=== PATIENT | male | born 1995 | race Caucasian/White ===

== ENCOUNTER 2018-05-07 16:40 | Emergency (ER) | payer OTHER, BC ==
[2018-05-07 16:47] VITALS: TEMP 98.9
[2018-05-07] MEDS ORDERED: Sodium Chloride 0.9% 1,000 ML IV STA (17:40)
[2018-05-07 18:09] LABS: BASO % 0.5 % (0.0-2.0); EOS # 0.1 K/uL (0.0-0.7); EOS % 0.9 % (0.0-4.0); HEMOGLOBIN 14.8 g/dL (12.0-18.0); LYMPH # 2.3 K/uL (1.0-4.3); LYMPH % 26.1 % (20.0-40.0); MEAN CELL VOLUME 90.7 fl (80.0-94.0); MEAN CORPUSCULAR HEMOGLOBIN 31.1 pg (27.0-31.0); MEAN CORPUSCULAR HGB CONC 34.3 g/dL (33.0-37.0); MONO # 0.6 K/uL (0.0-0.8); MONO % 6.7 % (0.0-10.0); NEUT # 5.9 K/uL (1.8-7.0); NEUT % 65.8 % (50.0-75.0); RBC 4.77 Mil/uL (4.40-5.90); RED CELL DISTRIBUTION WIDTH 12.1 % (11.5-14.5); WHITE BLOOD COUNT 8.9 K/uL (4.8-10.8)
[2018-05-07 18:17] LABS: ALB/GLOB RATIO 1.4 (1.0-2.1); ALBUMIN 4.3 g/dL (3.5-5.0); ALT/SGPT 34 U/L (21-72); AST/SGOT 27 U/L (17-59); BLOOD UREA NITROGEN 16 mg/dl (9-20); CALCIUM 9.3 mg/dL (8.4-10.2); GFR AFRICAN-AMERICAN > 60; GFR NON-AFRICAN AMERICAN > 60
--- NOTE | 2018-05-07 18:19 | ED PDOC ---
HPI: General Adult Time Seen by Provider: 05/07/18 16:51 Chief Complaint (Nursing): Weakness/Neurological Deficit Chief Complaint (Provider): Nausea - Resolved History Per: Patient History/Exam Limitations: no limitations Onset/Duration Of Symptoms: Hrs Have you had recent travel within the past 21 days to any of the following countries: [place], [place], [place] or [place]?: No Current Symptoms Are (Timing): Better Additional Complaint(s): 22 yo male with no medical problems presents after feeling nauseous at work earlier today. Pt states he has been out in the heat for duty the last few days. Pt states now that he is out of the heat he is feeling much better. Past Medical History Reviewed: Historical Data, Nursing Documentation, Vital Signs Vital Signs: Last Vital Signs Temp 98.9 F 05/07/18 16:45 Pulse 51 L 05/07/18 16:45 Resp 18 05/07/18 16:45 BP 120/67 05/07/18 16:45 Pulse Ox 99 05/07/18 16:45 - Medical History PMH: No Chronic Diseases - Surgical History Surgical History: No Surg Hx - Family History Family History: States: No Known Family Hx - Living Arrangements Living Arrangements: With Family - Allergies Allergies/Adverse Reactions: Allergies Allergy/AdvReac Type Severity Reaction Status Date / Time No Known Allergies Allergy Verified 05/07/18 16:45 Review of Systems ROS Statement: Except As Marked, All Systems Reviewed And Found Negative Constitutional: Negative for: Fever, Chills Gastrointestinal: Positive for: Nausea Physical Exam - Reviewed Nursing Documentation Reviewed: Yes Vital Signs Reviewed: Yes - Physical Exam Appears: Positive for: Well, Non-toxic, No Acute Distress Head Exam: Positive for: ATRAUMATIC, NORMAL INSPECTION, NORMOCEPHALIC Skin: Positive for: Normal Color, Warm, DRY Eye Exam: Positive for: Normal appearance ENT: Positive for: Normal ENT Inspection Neck: Positive for: Normal, Painless ROM Cardiovascular/Chest: Positive for: Regular Rate, Rhythm Respiratory: Positive for: CNT, Normal Breath Sounds Back: Positive for: Normal Inspection Extremity: Positive for: Normal ROM Neurologic/Psych: Positive for: Alert, Oriented - ECG O2 Sat by Pulse Oximetry: 99 Pulse Ox Interpretation: Normal Medical Decision Making Medical Decision Making: Labs normal. Pt denies complaints on re-evaluation. Disposition - Clinical Impression Clinical Impression: Nausea - Patient ED Disposition Is Patient to be Admitted: No - Disposition Referrals: Michael Gilliam MD [Primary Care Provider] - Disposition: Routine/Home Disposition Time: 18:39 Condition: STABLE Instructions: Nausea and Vomiting, Adult (DC) Forms: [facility] ([place]), [facility] ED School/Work Excuse
[2018-05-07 19:54] VITALS: BP 121/66; PULSE 59; RESP 20; O2SAT 100
== END 2018-05-07 19:00 | disposition home or self-care (01) ==
LOC: H.ER 16:40
DX: R11.0 Nausea (principal); X30.XXXA Exposure to excessive natural heat, initial encounter; Y99.0 Civilian activity done for income or pay
CPT/HCPCS: 80053; 85025; 96360; 99283; J7030